=== PATIENT | female | born 1945 | race Hispanic/Latino ===

== ENCOUNTER 2020-01-28 20:52 | Emergency (ER) | payer OTHER ==
--- NOTE | 2020-01-28 22:21 | EDPHYS ---
Physician Documentation [facility] Name: Courtney Nicole Age: 74 yrs Sex: Female : 1945 Arrival Date: 01/28/2020 Time: 20:56 Bed 5 Private MD: Rishi Ovalle ED Physician Jonathon Orozco HPI: 01/27 21:35 This 74 yrs old Female presents to ER via Wheelchair with complaints of Fall pm1 Injury, Hand Injury. 21:35 Details of fall: The patient fell from an upright position, while walking. Onset: The pm1 symptoms/episode began/occurred today. Associated injuries: The patient sustained left wrist, pain with supination and pronation. The patient has not experienced similar symptoms in the past. Patient was walking and tripped. She landed with her left hand out and landed on her left knee at the same time. No head injury or headache or neck pain. Patient able to walk after injury. Historical: - Allergies: 21:01 codeine sulfate; jd3 - PMHx: 21:01 Diabetes - IDDM; High Cholesterol; Hypertension; Thyroid problem; jd3 - PSHx: 21:01 ; tumar removal; jd3 - Immunization history:: Adult Immunizations unknown. - Social history:: Smoking status: Patient denies any tobacco usage or history of. ROS: 21:35 Constitutional: Negative for fever, chills, and weight loss, Neck: Negative for injury, pm1 pain, and swelling, Cardiovascular: Negative for chest pain, palpitations, and edema, Respiratory: Negative for shortness of breath, cough, wheezing, and pleuritic chest pain, Back: Negative for injury and pain. 21:35 Skin: Negative for injury, rash, and discoloration, Neuro: Negative for headache, weakness, numbness, tingling, and seizure. 21:35 MS/extremity: Positive for pain, of the left knee and left wrist, Negative for decreased range of motion, deformity. Exam: 21:35 Constitutional: This is a well developed, well nourished patient who is awake, alert, pm1 and in no acute distress. Head/Face: Normocephalic, atraumatic. Neck: Trachea midline, no thyromegaly or masses palpated, and no cervical lymphadenopathy. Supple, full range of motion without nuchal rigidity, or vertebral point tenderness. No Meningismus. 21:35 Skin: Warm, dry with normal turgor. Normal color with no rashes, no lesions, and no evidence of cellulitis. 21:35 Cardiovascular: Exam negative for acute changes, Rate: normal, Rhythm: regular, Pulses: no pulse deficits are appreciated. 21:35 Respiratory: Exam negative for acute changes, respiratory distress, shortness of breath. 21:35 Musculoskeletal/extremity: Extremities: grossly normal except: noted in the left wrist: tenderness, Patient reports pain with pronation and supination, There is no evidence of decreased ROM, deformity. 21:35 Neuro: Exam negative for acute changes, Orientation: is normal, Mentation: is normal, Motor: is normal, moves all fours, Sensation: is normal, no obvious gross deficits. Vital Signs: 21:01 BP 148 / 61; Pulse 97; Resp 16 S; Temp 97.5(TE); Pulse Ox 100% on R/A; Weight 65.77 kg jd3 (R); Height 4 ft. 11 in. (149.86 cm) (R); Pain 8/10; 22:15 BP 138 / 60; Pulse 88; Resp 18; Pulse Ox 98% on R/A; ea 21:01 Body Mass Index 29.29 (65.77 kg, 149.86 cm) jd3 MDM: 21:35 Patient medically screened. pm1 22:18 Data reviewed: vital signs. Data interpreted: Pulse oximetry: on room air is 100 %. pm1 Interpretation: normal. Counseling: I had a detailed discussion with the patient and/or guardian regarding: the historical points, exam findings, and any diagnostic results supporting the discharge/admit diagnosis, radiology results, the need for outpatient follow up, a orthopedic surgeon, to return to the emergency department if symptoms worsen or persist or if there are any questions or concerns that arise at home. 22:18 ED course: Patient offered left knee x-ray. She refused because it doesn't hurt much pm1 and she is able to move it without difficulty. 01/27 21:06 Order name: Hand Left 3 View XRAY jd3 01/27 21:06 Order name: XRAY Forearm LEFT jd3 01/27 22:18 Order name: Wrist Splint; Complete Time: 22:25 pm1 Administered Medications: 22:25 Drug: Tylenol 650 mg Route: PO; 22:38 Follow up: Response: No adverse reaction ea Disposition: 01/28 04:39 Co-signature as Attending Physician, Jonathon Orozco MD. 7 Disposition: 01/28/20 22:21 Discharged to Home. Impression: Sprain of unspecified part of left wrist and hand, Fall on same level from slipping, tripping and stumbling. - Condition is Stable. - Discharge Instructions: Cast or Splint Care, Adult, Fall Prevention in the Home, Wrist Sprain. - Medication Reconciliation Form, Thank You Letter, Antibiotic Education, Prescription Opioid Use form. - Follow up: Emergency Department; When: As needed; Reason: Worsening of condition. Follow up: Private Physician; When: 2 - 3 days; Reason: Recheck today's complaints, Continuance of care, Re-evaluation by your physician. - Problem is new. - Symptoms have improved. Signatures: Dispatcher [employer] [facility] Kurt Hammer NP SOLAR FIELD SERVICE TECHNICIAN pm1 Vernoika Paul Bony Blackwood RN RN jJonathon Stanton MD MD 7 Darcy Alvarado RN ea Corrections: (The following items were deleted from the chart) 01/27 22:27 21:07 Wrist Left 3 View+RAD.RAD.BRZ ordered. [facility] EDNV 22:41 22:21 01/28/2020 22:21 Discharged to Home. Impression: Sprain of unspecified part of left wrist and handFall on same level from slipping, tripping and stumbling. Condition is Stable. Forms are Medication Reconciliation Form, Thank You Letter, Antibiotic Education, Prescription Opioid Use. Follow up: Emergency Department; When: As needed; Reason: Worsening of condition. Follow up: Private Physician; When: 2 - 3 days; Reason: Recheck today's complaints, Continuance of care, Re-evaluation by your physician. Problem is new. Symptoms have improved. pm1
--- NOTE | 2020-01-28 22:21 | ER ---
Nurse's Notes [facility] Name: Courtney Nicole Age: 74 yrs Sex: Female : 1945 Arrival Date: 01/28/2020 Time: 20:56 Bed 5 Private MD: Rishi Ovalle Diagnosis: Fall on same level from slipping, tripping and stumbling;Sprain of unspecified part of left wrist and hand Presentation: 01/27 20:59 Chief complaint: Patient states: "I tripped and fell and hurt my left wrist up to my jd3 elbow.". Coronavirus screen: At this time, the client does not indicate any symptoms associated with coronavirus-19. Ebola Screen: Patient negative for fever greater than or equal to 101.5 degrees Fahrenheit, and additional compatible Ebola Virus Disease symptoms. Initial Sepsis Screen: Does the patient meet any 2 criteria? No. Patient's initial sepsis screen is negative. Does the patient have a suspected source of infection? No. Patient's initial sepsis screen is negative. Risk Assessment: Do you want to hurt yourself or someone else? Patient reports no desire to harm self or others. Onset of symptoms was January 28, 2020. 20:59 Method Of Arrival: Wheelchair jd3 20:59 Acuity: MADDY 3 jd3 Historical: - Allergies: 21:01 codeine sulfate; jd3 - PMHx: 21:01 Diabetes - IDDM; High Cholesterol; Hypertension; Thyroid problem; jd3 - PSHx: 21:01 ; tumar removal; jd3 - Immunization history:: Adult Immunizations unknown. - Social history:: Smoking status: Patient denies any tobacco usage or history of. Screenin:30 Nutritional screening: No deficits noted. Tuberculosis screening: No symptoms or risk wh factors identified. Fall Risk Fall in past 12 months (25 points). 22:38 Abuse screen: Denies threats or abuse. ea Assessment: 21:30 General: Appears in no apparent distress. Behavior is calm, cooperative, appropriate wh for age. Pain: Complains of pain in left wrist Pain currently is 4 out of 10 on a pain scale. Quality of pain is described as aching. Neuro: Level of Consciousness is awake, alert, obeys commands, Oriented to person, place, time, situation, Appropriate for age. Cardiovascular: Capillary refill < 3 seconds. Respiratory: Airway is patent Respiratory effort is even, unlabored, Respiratory pattern is regular, symmetrical. GI: Abdomen is flat, non-distended. : No signs and/or symptoms were reported regarding the genitourinary system. EENT: No signs and/or symptoms were reported regarding the EENT system. Derm: Skin is intact, is healthy with good turgor, Skin is pink, warm \\T\\ dry. normal. Musculoskeletal: Circulation, motion, and sensation intact. Range of motion: limited in left wrist. 22:30 Reassessment: Patient appears in no apparent distress at this time. No changes from previously documented assessment. Patient and/or family updated on plan of care and expected duration. Pain level reassessed. Patient is alert, oriented x 3, equal unlabored respirations, skin warm/dry/pink. Vital Signs: 21:01 BP 148 / 61; Pulse 97; Resp 16 S; Temp 97.5(TE); Pulse Ox 100% on R/A; Weight 65.77 kg jd3 (R); Height 4 ft. 11 in. (149.86 cm) (R); Pain 8/10; 22:15 BP 138 / 60; Pulse 88; Resp 18; Pulse Ox 98% on R/A; ea 21:01 Body Mass Index 29.29 (65.77 kg, 149.86 cm) jd3 ED Course: 20:56 Patient arrived in ED. mr 20:57 Rishi Ovalle MD is Private Physician. mr 21:00 Triage completed. jd3 21:03 Arm band placed on. jd3 21:24 Veronika Paul is Primary Nurse. wh 21:30 Patient has correct armband on for positive identification. Bed in low position. Call light in reach. Side rails up X 1. Pulse ox on. NIBP on. 21:34 Kurt Hammer NP is PHCP. pm1 21:34 Jonathon Orozco MD is Attending Physician. pm1 22:28 XRAY Forearm LEFT In Process Unspecified. EDMS 22:29 Hand Left 3 View XRAY In Process Unspecified. EDMS 22:39 No provider procedures requiring assistance completed. Patient did not have IV access during this emergency room visit. Administered Medications: 22:25 Drug: Tylenol 650 mg Route: PO; 22:38 Follow up: Response: No adverse reaction ea Outcome: 22:21 Discharge ordered by MD. pm1 22:40 Discharged to home ambulatory. 22:40 Condition: stable 22:40 Discharge instructions given to patient, Instructed on discharge instructions, follow up and referral plans. POC Demonstrated understanding of instructions, follow-up care, medications, splint care. 22:41 Patient left the ED. Signatures: Dispatcher [employer] EDAR Linda SahuKurt, LAW FIRM RECEPTIONIST LAW FIRM RECEPTIONIST pm1 Dacry Alvarado, Veronika Silverio RN, ea Bony Blackwood RN RN jd3 Corrections: (The following items were deleted from the chart) 21:05 21:01 Pulse 97bpm; Resp 16bpm; Spontaneous; Pulse Ox 100% RA; Temp 97.5F Temporal; jd3 65.77 kg Reported; Height 4 ft. 11 in. Reported; BMI: 29.2; Pain 8/10; jd3
[2020-01-28] MEDS ORDERED: ACETAMINOPHEN 325 MG TABLET ONE (22:36)
[2020-01-29 01:48] VITALS: BP 138/60; O2SAT 98
[2020-01-29 01:57] VITALS: TEMP 97.5
--- NOTE | 2020-01-29 08:33 | RAD REPORT ---
EXAM DESCRIPTION: RAD - Forearm Left - 01/28/2020 10:28 pm CLINICAL HISTORY: Left forearm pain status post injury FINDINGS: No fracture is seen. Bones are osteoporotic
--- NOTE | 2020-01-29 08:39 | RAD REPORT ---
EXAM DESCRIPTION: RAD -Hand Left 3 View - 01/28/2020 10:28 pm CLINICAL HISTORY: Left hand pain status post injury FINDINGS: Bones are osteoporotic. Bony density lies along the dorsal aspect of the wrist. It probably does not represent an acute fract ure but should be correlated clinically to see patient has point tenderness in this region. No dislocation. Remainder of exam unremarkable
== END 2020-01-28 22:41 | disposition home or self-care (01) ==
LOC: ER 20:52
DX: S63.502A Unspecified sprain of left wrist, initial encounter (principal); S63.92XA Sprain of unspecified part of left wrist and hand, initial encounter; W01.0XXA Fall on same level from slipping, tripping and stumbling without subsequent striking against object, initial encounter; Y93.01 Activity, walking, marching and hiking; Y92.89 Other specified places as the place of occurrence of the external cause; I10 Essential (primary) hypertension; Z88.5 Allergy status to narcotic agent
CPT/HCPCS: 99283

== ENCOUNTER 2020-04-05 20:25 | Emergency (ER) | payer OTHER ==
--- NOTE | 2020-04-05 23:49 | ER ---
Nurse's Notes [facility] Name: Courtney Nicole Age: 74 yrs Sex: Female : 1945 Arrival Date: 04/05/2020 Time: 20:42 Bed 25 Private MD: Diagnosis: Pain in left knee Presentation: 04/05 21:21 Chief complaint: Patient states: L Leg pain, hurts to walk and I can hardly walk on it, ca1 pain on back of L knee started around at 1700. Denies recent injury. Denies HX of blood clots. Coronavirus screen: Client denies travel out of the [place] in the last 14 days. At this time, the client does not indicate any symptoms associated with coronavirus-19. Ebola Screen: Patient negative for fever greater than or equal to 101.5 degrees Fahrenheit, and additional compatible Ebola Virus Disease symptoms Patient denies exposure to infectious person. Patient denies travel to an Ebola-affected area in the 21 days before illness onset. No symptoms or risks identified at this time. Initial Sepsis Screen: Does the patient meet any 2 criteria? No. Patient's initial sepsis screen is negative. Does the patient have a suspected source of infection? No. Patient's initial sepsis screen is negative. Risk Assessment: Do you want to hurt yourself or someone else? Patient reports no desire to harm self or others. Onset of symptoms was April 05, 2020. 21:21 Method Of Arrival: Wheelchair ca1 21:21 Acuity: MADDY 4 ca1 Triage Assessment: 23:44 General: Behavior is calm, cooperative. zb Historical: - Allergies: 21:24 codeine sulfate; ca1 - PMHx: 21:24 Diabetes - IDDM; High Cholesterol; Hypertension; Thyroid problem; ca1 - PSHx: 21:24 ; tumar removal; ca1 - Immunization history:: Pneumococcal vaccine is up to date, Flu vaccine is up to date. - Social history:: Smoking status: Patient denies any tobacco usage or history of. Screenin:43 Abuse screen: Denies threats or abuse. Denies injuries from another. Abuse screen: zb Denies threats or abuse. Nutritional screening: No deficits noted. Tuberculosis screening: No symptoms or risk factors identified. Fall Risk No fall in past 12 months (0 pts). No secondary diagnosis (0 pts). No IV (0 pts). Ambulatory Aid- Crutches/Cane/Walker (15 pts). Gait- Impaired (20 pts.). Mental Status- Oriented to own ability (0 pts). Total Young Fall Scale indicates Low Risk Score (25-44 pts). Fall prevention measures have been instituted. Side Rails Up X 2 Placed close to Nursing Station Frequent Obs/Assesments occuring As available Patient and Family Educated on Fall Prevention Program and strategies. Assessment: 23:41 General: Appears in no apparent distress. uncomfortable. Pain: Complains of pain in zb posterior aspect of left knee Pain does not radiate. Pain currently is 10 out of 10 on a pain scale. Quality of pain is described as aching, sharp, Pain began suddenly, today. Neuro: Level of Consciousness is awake, alert, obeys commands, Oriented to person, place, time, situation. Cardiovascular: Capillary refill < 3 seconds in bilateral fingers Patient's skin is warm and dry. Respiratory: Airway is patent Respiratory effort is even, unlabored, Respiratory pattern is regular, symmetrical. GI: No signs and/or symptoms were reported involving the gastrointestinal system. Abdomen is flat, non-distended. : No signs and/or symptoms were reported regarding the genitourinary system. EENT: No signs and/or symptoms were reported regarding the EENT system. Derm: Skin is intact, is healthy with good turgor, Skin is dry, Skin is normal, Skin temperature is warm. Musculoskeletal: Capillary refill < 3 seconds, in bilateral fingers. Range of motion: limited in left leg Swelling present in posterior aspect of left knee. 04/06 00:07 Reassessment: tamica wrapped. discussed R.I.C.E and d/c instructions. zb Vital Signs: 04/05 21:21 BP 144 / 81; Pulse 85; Resp 16 S; Temp 97.6(TE); Pulse Ox 100% on R/A; Weight 65.77 kg ca1 (R); Height 4 ft. 11 in. (149.86 cm) (R); Pain 10/; 04/06 00:06 BP 140 / 80; Pulse 82; Resp 16; Pulse Ox 100% on R/A; zb 04/05 21:21 Body Mass Index 29.29 (65.77 kg, 149.86 cm) ca1 ED Course: 04/05 20:42 Patient arrived in ED. am4 21:24 Triage completed. ca1 21:24 Arm band placed on right wrist. ca1 21:54 Extremity Venous Uni Ltd US In Process Unspecified. EDMS 21:54 Ultrasound completed. Patient tolerated well. Patient taken to lobby, via wheelchair, is Patient moved back from ultrasound. 22:54 Sanam Guevara FNP-C is [facility]. kb 22:54 Bk Shukla MD is Attending Physician. kb 23:31 Danni Murray, RN is Primary Nurse. zb 23:44 Patient has correct armband on for positive identification. Pulse ox on. NIBP on. Door zb closed. Noise minimized. Warm blanket given. Head of bed. 04/06 00:04 Knee Left 3 View XRAY In Process Unspecified. EDMS 00:06 No provider procedures requiring assistance completed. Patient did not have IV access zb during this emergency room visit. Administered Medications: 04/05 23:40 Drug: Ibuprofen 600 mg Route: PO; zb 04/06 00:07 Follow up: Response: No adverse reaction zb Outcome: 04/05 23:48 Discharge ordered by . kb 04/06 00:06 Discharged to home via wheelchair. zb Condition: stable Discharge instructions given to patient, Instructed on discharge instructions, follow up and referral plans. RICE Demonstrated understanding of instructions, follow-up care. 00:08 Patient left the ED. zb Signatures: Dispatcher [employer] EDMS Sanam Guevara FNP-C FNP-Ckb Acob, Cheryl, RN RN ca1 Lr, Mindi is Danni Murray RN RN zb Maggie Tsang am4 Corrections: (The following items were deleted from the chart) 04/05 21:25 21:21 Chief complaint: Patient states: L Leg pain, hurts to walk and I can hardly walk ca1 on it, pain on back of L knee started around at 1700. Denies injury. Denies HX of blood clots. ca1
--- NOTE | 2020-04-05 23:49 | EDPHYS ---
Physician Documentation [facility] Name: Courtney Nicole Age: 74 yrs Sex: Female : 1945 Arrival Date: 04/05/2020 Time: 20:42 Bed 25 Private MD: ED Physician Bk Shukla HPI: 04/05 23:19 This 74 yrs old Female presents to ER via Wheelchair with complaints of Leg kb Pain. 23:19 The patient presents with decreased range of motion, pain, tenderness. The complaints kb affect the posterior aspect of left knee. Context: The problem was sustained at home, resulted from an unknown cause, the patient can partially bear weight, can ambulate using a cane. The patient has not recently seen a physician. 23:20 Onset: The symptoms/episode began/occurred today. Modifying factors: The symptoms are kb alleviated by nothing. the symptoms are aggravated by movement, weight bearing. Associated signs and symptoms: The patient has no apparent associated signs or symptoms. Treatment prior to arrival includes: no previous treatment. Severity of symptoms: At their worst the symptoms were moderate, in the emergency department the symptoms are unchanged. The patient has not experienced similar symptoms in the past. Historical: - Allergies: 21:24 codeine sulfate; ca1 - PMHx: 21:24 Diabetes - IDDM; High Cholesterol; Hypertension; Thyroid problem; ca1 - PSHx: 21:24 ; tumar removal; ca1 - Immunization history:: Pneumococcal vaccine is up to date, Flu vaccine is up to date. - Social history:: Smoking status: Patient denies any tobacco usage or history of. ROS: 23:18 Constitutional: Negative for fever, chills, and weight loss, Cardiovascular: Negative kb for chest pain, palpitations, and edema, Respiratory: Negative for shortness of breath, cough, wheezing, and pleuritic chest pain, Abdomen/GI: Negative for abdominal pain, nausea, vomiting, diarrhea, and constipation, Skin: Negative for injury, rash, and discoloration, Neuro: Negative for headache, weakness, numbness, tingling, and seizure. 23:18 MS/extremity: Positive for decreased range of motion, pain, tenderness, of the posterior aspect of left knee. Exam: 23:18 Constitutional: This is a well developed, well nourished patient who is awake, alert, kb and in no acute distress. Head/Face: Normocephalic, atraumatic. Skin: Warm, dry with normal turgor. Normal color with no rashes, no lesions, and no evidence of cellulitis. Neuro: Awake and alert, GCS 15, oriented to person, place, time, and situation. Cranial nerves II-XII grossly intact. Motor strength 5/5 in all extremities. Sensory grossly intact. Cerebellar exam normal. Normal gait. 23:18 Musculoskeletal/extremity: Extremities: grossly normal except: noted in the posterior aspect of left knee: decreased ROM, pain, tenderness, ROM: limited active range of motion due to pain, in the posterior aspect of left knee, Circulation is intact in all extremities. Sensation intact. Weight bearing: can bear weight with assistance only, uses cane. Vital Signs: 21:21 BP 144 / 81; Pulse 85; Resp 16 S; Temp 97.6(TE); Pulse Ox 100% on R/A; Weight 65.77 kg ca1 (R); Height 4 ft. 11 in. (149.86 cm) (R); Pain 10/10; 04/06 00:06 BP 140 / 80; Pulse 82; Resp 16; Pulse Ox 100% on R/A; zb 04/05 21:21 Body Mass Index 29.29 (65.77 kg, 149.86 cm) ca1 MDM: 04/05 23:03 Patient medically screened. kb 23:18 Data reviewed: vital signs, nurses notes. Data interpreted: Pulse oximetry: on room air kb is 100 %. Interpretation: normal. Counseling: I had a detailed discussion with the patient and/or guardian regarding: the historical points, exam findings, and any diagnostic results supporting the discharge/admit diagnosis, radiology results, the need for outpatient follow up, a family practitioner, to return to the emergency department if symptoms worsen or persist or if there are any questions or concerns that arise at home. 04/05 21:28 Order name: Extremity Venous Uni Ltd US ca1 04/05 23:15 Order name: Knee Left 3 View XRAY kb 04/05 23:48 Order name: Eduin Wrap; Complete Time: 23:57 kb Administered Medications: 23:40 Drug: Ibuprofen 600 mg Route: PO; zb 04/06 00:07 Follow up: Response: No adverse reaction zb Disposition: 06:43 Co-signature as Attending Physician, Bk Vazquez MD I agree with the assessment and tamiko plan of care. Disposition: 04/05/20 23:48 Discharged to Home. Impression: Pain in left knee. - Condition is Stable. - Discharge Instructions: Knee Pain, [id number]. - Medication Reconciliation Form, Thank You Letter, Antibiotic Education, Prescription Opioid Use form. - Follow up: Emergency Department; When: As needed; Reason: Worsening of condition. Follow up: Private Physician; When: 2 - 3 days; Reason: Recheck today's complaints, Continuance of care, Re-evaluation by your physician. Signatures: Dispatcher [employer] EDMS Sanam Guevara, NURSING CENTER TUTOR-C NURSING CENTER TUTOR-Bk Woods MD MD cha Acob, Cheryl, RN Danni Souza RN RN zb Corrections: (The following items were deleted from the chart) 00:08 04/05 23:48 04/05/2020 23:48 Discharged to Home. Impression: Pain in left knee. zb Condition is Stable. Discharge Instructions: Knee Pain, [id number]. Forms are Medication Reconciliation Form, Thank You Letter, Antibiotic Education, Prescription Opioid Use. Follow up: Emergency Department; When: As needed; Reason: Worsening of condition. Follow up: Private Physician; When: 2 - 3 days; Reason: Recheck today's complaints, Continuance of care, Re-evaluation by your physician. kb
[2020-04-05] MEDS ORDERED: IBUPROFEN 200 MG TAB PO ONE (23:51)
[2020-04-05] MEDS ORDERED: IBUPROFEN 400 MG TAB ONE (23:51)
[2020-04-06 00:41] VITALS: TEMP 97.6; O2SAT 100
[2020-04-06 00:42] VITALS: BP 140/80
--- NOTE | 2020-04-06 08:31 | RAD REPORT ---
EXAM DESCRIPTION: US - Extremity Venous Uni Ltd - 04/05/2020 9:54 pm CLINICAL HISTORY: PAIN Leg swelling and edema. COMPARISON: No comparisons FINDINGS: Left lower extremity venous system was interrogated with Doppler technique. Normal flow, c ompressibility and augmentation was noted. There is no DVT present. IMPRESSION: No evidence of left lower extremity deep venous thrombosis.
--- NOTE | 2020-04-06 08:37 | RAD REPORT ---
EXAM DESCRIPTION: RAD - Knee Left 3 View - 04/06/2020 12:01 am CLINICAL HISTORY: PAIN COMPARISON: No comparisons FINDINGS: Mild medial compartment space narrowing is seen. No acute fracture, dislocation or aggress lisa marrow pattern. No significant intra-articular joint effusion.
== END 2020-04-06 00:08 | disposition home or self-care (01) ==
LOC: ER 20:25
DX: M25.562 Pain in left knee (principal); I10 Essential (primary) hypertension; Z88.5 Allergy status to narcotic agent
CPT/HCPCS: 93971; 99284